=== PATIENT | male | born 1940 | race Caucasian/White ===

== ENCOUNTER 2019-08-26 06:13 | Observation (INO) | payer MEDICARE, OTHER ==
[~2019-08-26] VITALS: Ht 188 cm; Wt 102.1 kg
[~2019-08-26 06:13] MED LIST: ASPI81EC PO; AZOR PO; FISH1000 PO; MULVITMIND PO
[2019-08-26 07:01] LABS: BASOPHILS ABSOLUTE AUTO 0.01 K/mm3 (0.00-0.23); BASOPHILS PERCENT AUTO 0 % (0-2); EOSINOPHILS ABSOLUTE AUTO 0.01 K/mm3 (0.00-0.68); EOSINOPHILS PERCENT AUTO 0 % (0-6); Hemoglobin 15.7 g/dL (13.5-17.5); IMMATURE GRAN ABSOLUTE AUTO 0.01 K/mm3 (0.00-0.10); IMMATURE GRAN PERCENT AUTO 0 % (0-1); LYMPHOCYTES ABSOLUTE AUTO 0.76 K/mm3 (0.84-5.20); LYMPHOCYTES PERCENT AUTO 13 % (21-46); MONOCYTES ABSOLUTE AUTO 0.28 K/mm3 (0.16-1.47); MONOCYTES PERCENT AUTO 5 % (4-13); Mean Corpuscular HGB 33.5 pg (26.0-34.0); Mean Corpuscular HGB Conc 33.4 g/dL (31.5-36.5); Mean Corpuscular Volume 100 fL (80-100); Mean Platelet Volume 8.8 fL (9.1-12.4); NEUTROPHILS ABSOLUTE AUTO 4.59 K/mm3 (1.96-9.15); NEUTROPHILS PERCENT AUTO 81 % (41-73); Platelet Count 179 K/mm3 (150-400); RDW Coefficient Variation 13.3 % (11.7-14.2); RDW Standard Deviation 49.5 fL (35.1-46.3); Red Blood Cell Count 4.68 M/mm3 (4.30-5.90); White Blood Cell Count 5.66 K/mm3 (4.00-11.30)
[2019-08-26 07:27] LABS: Alanine Aminotransfer (ALT/SGP 22 U/L (12-78); Albumin/Globulin Ratio 0.9 (0.8-1.8); Alk Phos 87 U/L (50-136); Anion Gap 7 mmol/L (6-16); Aspartate Aminotrans (AST/SGOT 28 U/L (12-37); Blood Urea Nitrogen 19 mg/dL (8-24); Bun/Creatinine Ratio 18.1 (12.0-20.0); CO2, Blood 26 mmol/L (21-32); Calcium, Blood 9.6 mg/dL (8.5-10.1); Chloride, Blood 105 mmol/L (98-108); Creatinine, Blood 1.05 mg/dL (0.60-1.20); Globulin, Blood 4.3 g/dL (2.2-4.0); Glomerular Filtration Rate >60 (60-); Glucose, Blood 143 mg/dL (70-99); Magnesium, Blood 1.7 mg/dL (1.6-2.4); Potassium, Blood 3.6 mmol/L (3.5-5.5); Sodium, Blood 138 mmol/L (136-145); Total Protein, Blood 8.3 g/dL (6.4-8.2); Troponin I <0.015 ng/mL (0.000-0.040)
[2019-08-26] MEDS ORDERED: LOSA50 PO (07:54)
[2019-08-26] MEDS ORDERED: AMLODIPINE BESY10 MG PO (07:54)
[2019-08-26 10:15] LABS: Source, Urine Clean Catch
[2019-08-26 10:17] LABS: Bilirubin, Urine Neg (Neg); Blood, Urine 1+ (Neg); Glucose Qualitative, Urine Neg (Neg); Ketones, Urine 3+ (Neg); Leukocyte Esterase, Urine Neg (Neg); Nitrite, Urine Neg (Neg); Protein, Urine 2+ (Neg); Urobilinogen, Urine 2+ (Normal)
[2019-08-26 10:31] LABS: Appearance, Urine Clear (Clear); Color, Urine Amber (P-Yellow)
[2019-08-26 10:33] LABS: Red Blood Cells, Urine 0-2 /hpf (0-2); White Blood Cells, Urine 0-2 /hpf (0-5)
[2019-08-26 10:34] LABS: Bacteria Rare /hpf; Mucus Light (0-Heavy); Squamous Epithelial Cells Rare /hpf (Few)
--- NOTE | 2019-08-26 11:18 | NUR ---
PT ARRIVED TO THE ROOM AT APPROXIMATELY 1110. HE IS ALERT AND ORIENTED. HE RATES HIS PAIN AT 6/10 AND STATES HE WOULD TOLERATE 1/10. PT EDUATED THAT 1/10 PAIN GOAL MAY NOT BE REALISTIC HOWEVER WE WILL ATTEMPT TO PROVIDE PAIN MANAGEMENT THAT IS APPROPRIATE.
--- NOTE | 2019-08-26 15:58 | NUR ---
PT TAKEN TO DAY SURGERY AT APROXIMATELY 1510
--- NOTE | 2019-08-26 18:43 | NUR ---
SHIFT SUMMARY PT HAD A LAP APPY TODAY WITH DR. WEST. POST-OP PT HAS DONE WELL. HE IS ALERT AND ORIENTED. HE HAS DENIED PAIN. TOLERATING SMALL AMOUNTS OF LIGHT FOODS AND CLEAR LIQUIDS. PT DENIES NAUSEA, BUT REPORTED HE ONLY FELT LIKE EATING LIGHT FOODS. HE IS ABLE TO AMBULATE. VSS. WILL REPORT TO ONCOMING RN.
--- NOTE | 2019-08-27 03:58 | NUR ---
SHIFT SUMMARY POD 1 LAP APPY, STERI STRIPS C/D/I. A/OX4. VIC PO INTAKE, DENIES N/V. AMBULATING. DENIES PAIN OR NEED FOR PAIN MEDICATION. REPORTS VOIDING WITHOUT DIFFICULTY. ABX/IVF INFUSED PER ORDERS. PT APPEARS TO HAVE SLEPT WELL THROUGHTOUT SHIFT. TELE IN PLACE WITH HR [place] WITH 1ST DEGREE. IS CURRENTLY RESTING IN BED WITH CALL LIGHT IN REACH. WILL CONT TO MONITOR AND GIVE REPORT TO ONCOMING RN.
[2019-08-27 04:35] LABS: BASOPHILS ABSOLUTE AUTO 0.01 K/mm3 (0.00-0.23); BASOPHILS PERCENT AUTO 0 % (0-2); Hematocrit 37.5 % (37.0-53.0); Hemoglobin 12.7 g/dL (13.5-17.5); LYMPHOCYTES ABSOLUTE AUTO 0.52 K/mm3 (0.84-5.20); LYMPHOCYTES PERCENT AUTO 7 % (21-46); MONOCYTES ABSOLUTE AUTO 0.65 K/mm3 (0.16-1.47); MONOCYTES PERCENT AUTO 8 % (4-13); Mean Corpuscular HGB Conc 33.9 g/dL (31.5-36.5); Mean Corpuscular Volume 101 fL (80-100); Mean Platelet Volume 8.9 fL (9.1-12.4); Platelet Count 120 K/mm3 (150-400); RDW Coefficient Variation 13.2 % (11.7-14.2); RDW Standard Deviation 48.7 fL (35.1-46.3); Red Blood Cell Count 3.73 M/mm3 (4.30-5.90); White Blood Cell Count 7.86 K/mm3 (4.00-11.30)
[2019-08-27 04:39] LABS: EOSINOPHILS PERCENT AUTO 0 % (0-6); IMMATURE GRAN ABSOLUTE AUTO 0.02 K/mm3 (0.00-0.10); IMMATURE GRAN PERCENT AUTO 0 % (0-1); NEUTROPHILS ABSOLUTE AUTO 6.66 K/mm3 (1.96-9.15); NEUTROPHILS PERCENT AUTO 85 % (41-73)
[2019-08-27 04:55] LABS: Anion Gap 2 mmol/L (6-16); Blood Urea Nitrogen 26 mg/dL (8-24); Bun/Creatinine Ratio 22.6 (12.0-20.0); CO2, Blood 30 mmol/L (21-32); Calcium, Blood 8.2 mg/dL (8.5-10.1); Chloride, Blood 107 mmol/L (98-108); Creatinine, Blood 1.15 mg/dL (0.60-1.20); Glomerular Filtration Rate >60 (60-); Glucose, Blood 134 mg/dL (70-99); Potassium, Blood 4.1 mmol/L (3.5-5.5); Sodium, Blood 139 mmol/L (136-145)
[2019-08-27 05:04] LABS: BAND PERCENT MAN 16 % (0-8); BASOPHILS PERCENT MAN 0 % (0-2); EOSINOPHILS PERCENT MAN 0 % (0-6); LYMPHOCYTES ABSOLUTE MAN 0.55 K/mm3 (0.84-5.20); LYMPHOCYTES PERCENT MAN 7 % (21-46); METAMYELOCYTE ABSOLUTE MAN 0.15 K/mm3 (0.00-0.00); METAMYELOCYTE PERCENT MAN 2 % (0-0); MONOCYTES ABSOLUTE MAN 0.55 K/mm3 (0.16-1.47); MONOCYTES PERCENT MAN 7 % (4-13); SEG NEUTROPHILS PERCENT MAN 68 % (41-73); TOTAL CELLS COUNTED 100
[2019-08-27] MEDS ORDERED: AMOCLA875 PO (12:03)
--- NOTE | 2019-08-27 12:14 | NUR ---
DISCHARGE PT PROVIDED WITH WRITTEN AND VERBAL DISCHARGE INSTRUCTIONS. HE REPORTED UNDERSTANDING. PT DECLINED NEED FOR PAIN MEDICATION. PT AMBULATED OUT INDEPEDENTLY.
== END 2019-08-27 12:15 | disposition home or self-care (01) ==
LOC: ER 06:13 → SURS 06:14
PROVIDERS: Emergency Medicine; Surgery; ADMIT Internal Medicine
PROC: 0DTJ4ZZ Resection of Appendix, Percutaneous Endoscopic Approach (ICD-10-PCS; principal; 2019-08-26 15:15)
DX: K35.80 Unspecified acute appendicitis (principal); I71.4 Abdominal aortic aneurysm, without rupture; C61 Malignant neoplasm of prostate; I10 Essential (primary) hypertension; I48.91 Unspecified atrial fibrillation; Z87.891 Personal history of nicotine dependence; Z88.5 Allergy status to narcotic agent; Z79.899 Other long term (current) drug therapy; R79.89 Other specified abnormal findings of blood chemistry
CPT/HCPCS: 36415; 74177; 80048; 80053; 81001; 83690; 83735; 84484; 85025; 88304; 93005; 93010; 93306; 96361; 96365-59; 96366; 96367; 96375; 96376; 99285-25; G0378; J0153; J1100; J1170; J1885; J2370; J2405; J2543; J2704; J3010; J3411; J7120; Q9967; U0002

== ENCOUNTER 2020-08-28 09:00 | Emergency (ER) | payer MEDICARE ==
[~2020-08-28] VITALS: Ht 188 cm; Wt 95.7 kg
[~2020-08-28 09:00] MED LIST changes: +AMLODIPINE BESY10 MG PO; +AMOCLA875 PO; +LOSA50 PO
[2020-08-28] MEDS ORDERED: ACETAMINOPHEN500 MG PO (13:27)
[2020-08-28] MEDS ORDERED: Roxicodone5 MG PO (13:27)
== END 2020-08-28 13:35 | disposition home or self-care (01) ==
LOC: ER 09:00
DX: S42.202A Unspecified fracture of upper end of left humerus, initial encounter for closed fracture (principal); S80.02XA Contusion of left knee, initial encounter; W01.10XA Fall on same level from slipping, tripping and stumbling with subsequent striking against unspecified object, initial encounter
CPT/HCPCS: 29105; 73030; 73200; 73562-LT; 76377; 96374-59; 97116; 97162; 97530; 99284-25; A9270; J1170

== ENCOUNTER 2020-09-11 05:09 | Inpatient (IN) | payer MEDICARE ==
[~2020-09-11] VITALS: Ht 188 cm; Wt 92.7 kg
[~2020-09-11 05:09] MED LIST changes: +ACETAMINOPHEN500 MG PO; +Roxicodone5 MG PO
[2020-09-11] MEDS ORDERED: ERLEADA60 MG PO (10:12)
[2020-09-11] MEDS ORDERED: TUMS500 MG PO (10:14)
[2020-09-11] MEDS ORDERED: LOSA50 PO (10:14)
[2020-09-11] MEDS ORDERED: MELATONIN5 M1 PO (10:15)
[2020-09-11] MEDS ORDERED: NAPR220 PO (10:17)
[2020-09-11] MEDS ORDERED: Acetaminophen650 M1 PO (10:19)
[2020-09-11] MEDS ORDERED: BISA10S PR (10:19)
[2020-09-11] MEDS ORDERED: DULCOLAX400 MG/5 M PO (10:21)
--- NOTE | 2020-09-11 10:38 | NUR ---
PT INTO SDS VIA WC. PRESENT. History, Chart, Medications and Allergies reviewed before start of procedure. Lungs clear T/O to Auscultation. Patient confirms NPO status and agrees with scheduled surgery. Pre-Op teaching done. Pt verbalizes understanding. Patient States Post-Procedure ride home has been arranged.
--- NOTE | 2020-09-11 13:08 | NUR ---
09/11/20 India Pugh SPECIAL ATTENTION AND CARE TAKEN TO PATIENT'S LEFT UPPER EXTREMITY D/T EXSITING FX.
--- NOTE | 2020-09-11 15:24 | NUR ---
PPP WIGGLES TOES MORENO RODRIGUEZ PAS IN PLACE
--- NOTE | 2020-09-11 18:07 | NUR ---
SHIFT SUMMARY PATIENT POST OP LEFT HIP FRACTURE REPAIR. POST OP VITALS STABLE. TOLERATING CLEAR LIQUIDS, VOIDING WELL. BEDREST AT BASELINE. LEFT SHOULDER ALSO FRACTURED, IN SLING. IV FLUIDS AND ABX RUNNING. WIGGLES LEFT TOES, WARM WITH GOOD CAP REFILL. LEG WRAPPED IN HELENA. MEDICATED FOR PAIN PER EMAR.
[2020-09-12 05:25] LABS: BASOPHILS ABSOLUTE AUTO 0.02 K/mm3 (0.00-0.23); BASOPHILS PERCENT AUTO 0 % (0-2); EOSINOPHILS ABSOLUTE AUTO 0.08 K/mm3 (0.00-0.68); EOSINOPHILS PERCENT AUTO 1 % (0-6); Hematocrit 27.2 % (37.0-53.0); Hemoglobin 8.9 g/dL (13.5-17.5); IMMATURE GRAN ABSOLUTE AUTO 0.02 K/mm3 (0.00-0.10); IMMATURE GRAN PERCENT AUTO 0 % (0-1); LYMPHOCYTES ABSOLUTE AUTO 0.62 K/mm3 (0.84-5.20); LYMPHOCYTES PERCENT AUTO 9 % (21-46); MONOCYTES ABSOLUTE AUTO 0.92 K/mm3 (0.16-1.47); MONOCYTES PERCENT AUTO 14 % (4-13); Mean Corpuscular HGB 31.9 pg (26.0-34.0); Mean Corpuscular HGB Conc 32.7 g/dL (31.5-36.5); Mean Corpuscular Volume 98 fL (80-100); Mean Platelet Volume 9.7 fL (9.1-12.4); NEUTROPHILS PERCENT AUTO 75 % (41-73); Platelet Count 265 K/mm3 (150-400); RDW Coefficient Variation 12.6 % (11.7-14.2); RDW Standard Deviation 44.8 fL (35.1-46.3); Red Blood Cell Count 2.79 M/mm3 (4.30-5.90); White Blood Cell Count 6.66 K/mm3 (4.00-11.30)
[2020-09-12 05:55] LABS: Anion Gap 7 mmol/L (6-16); Blood Urea Nitrogen 22 mg/dL (8-24); CO2, Blood 29 mmol/L (21-32); Calcium, Blood 9.8 mg/dL (8.5-10.1); Chloride, Blood 103 mmol/L (98-108); Creatinine, Blood 1.05 mg/dL (0.60-1.20); Glomerular Filtration Rate >60 (60-); Glucose, Blood 98 mg/dL (70-99); Potassium, Blood 3.2 mmol/L (3.5-5.5); Sodium, Blood 139 mmol/L (136-145)
--- NOTE | 2020-09-12 07:43 | NUR ---
SHIFT SUMMARY POD 1 L DISTAL FEMUR ORIF, S/P LUE FX NON SURGICAL, LUE IN SLING, A/O X4, VSS, TOLERATING PO, NWB LUE AND LLE, VOIDING, PAIN MANAGED PER EMAR. NO ACUT EVENTS THIS SHIFT. CALL LIGHT IN REACH, REPORT GIVEN TO DAY RN.
--- NOTE | 2020-09-12 18:05 | NUR ---
SUMMARY NO ACUTE CHANGES T/O SHIFT. WORKED W/THERAPY TO SIT ON EDGE OF BED, DID NOT GET OOB. MEDICATED T/O SHIFT PER ORDERS FOR L SHOULDER PAIN. DECLINED OFFER FOR ICE PACK TO SHOULDER. PLEASANT AND COOPERATIVE. CALL LIGHT IN REACH.
--- NOTE | 2020-09-13 07:27 | NUR ---
SHIFT SUMMARY PT PLEASANT, A/O X4, VSS, ONLY USING R HAND DUE TO L SHOULDER FX, PAIN WELL MANAGED PER EMAR, DOES WELL TAKING MEDICATIONS, PLAN TO DC TOMORROW BACK TO [facility]. REPORT GIVEN TO DAY RN.
--- NOTE | 2020-09-13 11:13 | NUR ---
therapy worked w/pt
--- NOTE | 2020-09-13 16:59 | NUR ---
SUMMARY NO ACUTE CHANGES T/O SHIFT. PT WORKED W/ THERAPY. DID NOT GET UP TO SIDE OF BED TODAY BUT WORKED ON ROM EXERCISES. DR HANNA IN TO SEE PT THIS AM; CHANGED DRESSING AND HELENA WRAP. PT PLEASANT AND COOPERATIVE. CALL LIGHT IN REACH.
--- NOTE | 2020-09-14 06:18 | NUR ---
SUMMARY NO ACUTE CHANGES NOTED THROUGH THE NIGHT. PAIN MEDICATED PER EMAR WITH TYLENOL & OXYCODONE X2. PT REMAINED ON BEDREST WITH LEFT ARM/LEG ELEVATED ON PILLOWS, CIRC TO BOTH EXTREMITIES WNL, DENIES N/T, VSS, ON RA, TOLERATING PO INTAKE. PT ATTEMPTING TO USE URINAL BUT NEEDED TO HAVE A COMPLETE BED CHANGE X2 DUE TO SPILLING, HE WAS ENC TO CALL FOR ASSISTANCE. URINE IS CLOUDY YELLOW. CALL LIGHT IN REACH.
--- NOTE | 2020-09-14 17:52 | NUR ---
SHIFT SUMMARY PT HAS BEEN PLEASANT & COOPERATIVE T/O SHIFT. WORKED W/ PT/OT. PAIN REASONABLY MANAGED. PLAN FOR RETURN TO SNF TOMORROW. MOM GIVEN FOR BOWEL CARE.
--- NOTE | 2020-09-15 03:49 | NUR ---
SHIFT SUMMARY: POD 4 ORIF OF LEFT FEMUR PATIENT IS ALERT AND ORIENTED WHILE AWAKE. HE HAS BEEN ASLEEP MAJORITY OF THE SHIFT BUT IS EASILY AROUSABLE TO TOUCH AND TALKING. VS ARE WNL AND IS ON RA. PAIN IS MANAGED WITH PO TYLENOL THIS SHIFT. HELENA WRAP WITH AQUACEL UNDERNEATH IS C/D/I. DENIES ANY NUMBNESS AND TINGLING IN ALL EXTREMITIES. CALLS APPROPRIATELY. CALL LIGHT WITHIN REACH. PATIENT IS VOIDING AND TOLERATING PO INTAKE. THE PLAN IS TO RETURN TO SNF LATER TODAY.
--- NOTE | 2020-09-15 17:38 | NUR ---
SHIFT SUMMARY PT HAS MADE PROGRESS TODAY & MADE IT TO THE CHAIR. UNFORTUNATELY, HE FINDS IT SO COMFORTABLE HE WISHES TO STAY IN IT AND REFUSES TO GO BACK TO BED. HE DOES REPOSITION HIMSELF IN THE CHAIR FREQ. WHILE HE IS IN THE CHAIR, REFUSES TO HAVE SUPPOSITORY. CONTINUING W/ ORAL BOWEL CARE.
--- NOTE | 2020-09-16 06:44 | NUR ---
SHIFT SUMMARY POD5 ORIF L DISTAL FEMUR, S/P L HUMEROUS FX NON SURGICAL, A/O X4, VSS, TOLERATING PO, PAIN MANAGED PER EMAR, EATING, VOIDING, STILL WAITING ON BM IN ORDER TO DC BACK TO [facility]. PT UP TO CHAIR T/O SHIFT PER PT PREFERENCE, PT REPORTS THE CHAIR IS MORE COMFORTABLE THAN THE BED. NO ACUTE EVENTS THIS SHIFT. CALL LIGHT IN REACH, WILL CTM AND REPORT TO DAY RN.
[2020-09-16 16:16] LABS: SARS-Cov-2 (COVID-19) PCR, MMC NEGATIVE (NEGATIVE)
--- NOTE | 2020-09-16 16:50 | NUR ---
REPORT CALLED TO [facility] YUS[facility] WHITEABEDIL
--- NOTE | 2020-09-16 19:22 | NUR ---
TRANSPORTATION PT LEAVES VIA W/C TO [facility].
== END 2020-09-16 19:21 | DRG 481 ==
LOC: ORSCSDS 05:09 → SURS 08:13 → ORSCSDS 08:30 → SURS 16:34
PROVIDERS: ADMIT Orthopaedic Surgery
PROC: 0QSC04Z Reposition Left Lower Femur with Internal Fixation Device, Open Approach (ICD-10-PCS; principal; 2020-09-11 12:30)
DX: S72.402A Unspecified fracture of lower end of left femur, initial encounter for closed fracture (principal); M97.12XA Periprosthetic fracture around internal prosthetic left knee joint, initial encounter; C79.51 Secondary malignant neoplasm of bone; Z20.822 Contact with and (suspected) exposure to COVID-19; F12.90 Cannabis use, unspecified, uncomplicated; M19.90 Unspecified osteoarthritis, unspecified site; S42.302D Unspecified fracture of shaft of humerus, left arm, subsequent encounter for fracture with routine healing; C61 Malignant neoplasm of prostate; I10 Essential (primary) hypertension; M81.0 Age-related osteoporosis without current pathological fracture; Z90.49 Acquired absence of other specified parts of digestive tract; Z87.891 Personal history of nicotine dependence; Z98.890 Other specified postprocedural states; W19.XXXA Unspecified fall, initial encounter
CPT/HCPCS: 36415; 73552; 80048; 85025; 94760; 97110; 97162; 97166; 97530; 97535; A9270; C1713; J0171; J0690; J1100; J1885; J2250; J2370; J2405; J2704; J3010; J7120; U0004